=== PATIENT | female | born 1970 | race Caucasian/White ===

== ENCOUNTER 2024-07-08 07:36 | Observation (INO) ==
--- NOTE | 2024-06-29 12:18 | Anesthesiology Consultation ---
Date of Service June 29, 2024 Assessment & Plan (1) Encounter for pre-operative examination: - Per medical physics researcher on 06/29/24: No known infectious disease contacts, current infectious disease symptoms in past 10 days or COVID positive test result in the past 30 days. Chart Review Chart Review: Acceptable Risk for Surgery and Patient NOT seen in Pre Admission Testing History Surgery Operation Date: 07/08/24 09:50 Proposed Procedures p Bilateral Breast Mastectomy with Right [place] Lymph Node Biopsy - Trey Duran DO, FACS Height/Weight Height: 5 ft 6 in Weight: 66.224 kg Allergies Allergy/AdvReac Type Severity Reaction Status Date / Time sulfamethoxazole Allergy Mild Rash Verified 06/29/24 10:47 [From Bactrim] trimethoprim [From Bactrim] Allergy Mild Rash Verified 06/29/24 10:47 Medications Home Medications Medication Instructions Recorded Confirmed Last Taken trazodone 150 mg tablet 150 mg PO HS 06/01/24 06/29/24 Unknown venlafaxine 50 mg tablet 50 mg PO QAM 06/01/24 06/29/24 Unknown Past Medical History Medical History Anxiety History of COVID-19 hx 2020--mild symptoms, no symptoms now Invasive lobular carcinoma of right breast in female diagnosed 05/2024 Tobacco smoker, 1 pack of cigarettes or less per day Past Family History Family History Other No family history of adverse response to anesthesia Past Surgical History Surgical History H/O: hysterectomy partial History of colonoscopy History of right breast biopsy malignant History of wisdom tooth extraction Social History Smoking Status: Current every day smoker Smoking cigarettes per day: 20 a day (advised on policy) Do You Dip or Chew Tobacco: No Hx Alcohol Use: Yes Alcohol type: beer alcohol intake frequency: a few times a month Hx Substance Use: No substance use type: does not use Lab Results Anesthesia Preop Results Results Anesthesia Widget: WBC 5.25 K/ul (4.8-10.8) 06/01/24 Hgb 13.8 g/dl (12.0-16.0) 06/01/24 Hct 42.6 % (37.0-47.0) 06/01/24 Plt 225 K/uL (130-400) 06/01/24 Na 139 mmol/L (136-145) 06/01/24 K 4.1 mmol/L (3.5-5.1) 06/01/24 Cl 106 mmol/L (98-107) 06/01/24 CO2 27 mmol/L (21-32) 06/01/24 BUN 9 mg/dl (6-23) 06/01/24 Creat 0.68 mg/dl (0.6-1.2) 06/01/24 Glucose Level 111 mg/dl (70-99(Fasting)) H 06/01/24 Testing Electrocardiogram Date: 06/23/24 NSR, rate 78 bpm Low voltage QRS, consider pulmonary disease, pericardial effusion or normal variant Chest X-Ray Date: 06/23/24 No acute cardiopulmonary disease.
--- OUTSIDE RECORDS SUMMARY | 2024-07-08 07:52 | External Medical Summary | Summary of Care ---
Author Name Unknown Organization [facility] Address [address] [place] [address] Phone [phone] Care Team Providers Care Sorting Grapple Operator Name Role Phone Gildardo Aquino PA-C Primary Care Provider [phone] Encounter Details Date Type Department Care Team (Latest Contact Info) Description 06/23/2024 11:37 AM EDT - 06/23/2024 11:59 PM EDT Hospital Encounter Cardiac Studies, [facility] [address] [place] [address] Gl, Cargo Worker [address] [place] [address] Discharge Disposition: Home - Self Care Allergies Active Allergy Reactions Criticality Noted Date Comments Sulfamethoxazole-Trimethoprim 2015 rash documented as of this encounter (statuses as of 06/24/2024) Medications Medication Sig Dispensed Refills Start Date End Date Status venlafaxine (EFFEXOR) 75 MG Tablet Take 1 Tablet by mouth in the morning. Active TraZODone & Diet Manage Prod (TRAZAMINE) 50 MG MISC Take by mouth. Active lidocaine 2 % gel Apply topically to affected area 3 times a day as needed for Pain. apply externally only, in a thin layer to the anal area. 30 mL 12/31/2018 Active documented as of this encounter (statuses as of 06/24/2024) Active Problems No known active problems documented as of this encounter (statuses as of 06/24/2024) Social History Tobacco Use Types Packs/Day Years Used Date Smoking Tobacco: Every Day Cigarettes Smokeless Tobacco: Never Utilities Answer Date Recorded Do you have trouble paying y our heating, water, or electric bill? (Adult - for ages 18 years and over) Not on file 05/19/2024 Is your family able to pay t he heat, water, or electric bill? (Household - for ages 0-17 years) Not on file 05/19/2024 Does your family have access to good internet? (Household - for ages 0-17 years) Not on file 05/19/2024 Social Connections Answer Date Recorded How often do you feel lonely or isolated from those around you? (Adult - for ages 18 years and over) Not on file 05/19/2024 Sex and Gender Information Value Date Recorded Sex Assigned at Not on file Gender Identity Not on file Sexual Orientation Not on file Job Start Date Occupation Industry Not on file Not on file Not on file documented as of this encounter Plan of Treatment Upcoming Encounters Date Type Department Care Team (Latest Contact Info) Description 10/07/2024 8:30 AM EST Hospital Encounter ENDO [facility], Endoscopy [address] [phone] Meliton Sharp MD [address] [place] [address] 10/07/2024 8:30 AM EST - 10/07/2024 9:00 AM EST Surgery ENDO [facility], Endoscopy [address] [phone] Meliton Sharp MD [address] [place] [address] COLONOSCOPY FLEXIBLE PROXIMAL DIAGNOSTIC Scheduled Orders Name Type Priority Associated Diagnoses Orde r Schedule EKG EKG Routine Other specified pre-operative examination Ordered: 06/23/2024 Scheduled Procedures Name Priority Associated Diagnoses Date/Ti me COLONOSCOPY FLEXIBLE PROXIMAL DIAGNOSTIC Recall History of colon polyps 10/07/2024 8:30 AM EST Health Maintenance Due Date Last Done Comments Pneumococcal Vaccine: Pediatrics (0 to 5 Years) and At-Risk Patients (6 to 64 Years) (1 of 2 - PCV) 1977 Depression Screening 1983 HIV Screening 1986 Hepatitis C Screening 1989 DTaP,Tdap,and Td Vaccines (1 - Tdap) 1990 Hepatitis B Vaccine (1 of 3 - 19+ 3-dose series) 1990 Cologuard 2016 Fecal Occult Blood Test 2016 Sigmoidoscopy 2016 Zoster Vaccines (1 of 2) 2021 COVID-19 Vaccine (1 - 2022- season) 2023 Influenza Vaccine (FLU shot) (#1) 2024 Mammogram 05/12/2025 05/12/2024, 05/04/2024 Lipid Panel 10/18/2028 10/18/2023, 10/16/2022 Colonoscopy 09/11/2032 09/11/2022, 09/01, 07/10/2016, Additional history exists Colorectal Cancer Screening 09/11/2032 RETIRED - COLONOSCOPY EVERY 10 YEARS,AGES 18-50 Discontinued 09/11/2022, 09/11/2022, 07/10/2016, Additional history exists HPV (Gardasil) Vaccine Aged Out No lo nger eligible based on patient's age to complete this topic MENINGOCOCCAL (MENACTRA/MENVEO) Aged Out No longer eligible based on patient's age to complete this topic documented as of this encounter Medical Devices Implanted Type Area Telephone Instrument Supervisor Device Identifier Shelf Expiration Date Model / Serial / Lot Ultraclip Dual Brst Mrkr Heart - [id number] Implanted:Qty: 1 on 05/20/2024 at [facility] IR IMAG[facility] CR BARD : PERIPHERAL VASCULAR [id number] / / [id number] Titnm 5ct - [id number] Implanted:Qty: 1 on 05/20/2024 at [facility] IR IMAGING CR BARD : PERIPHERAL VASCULAR [id number] / / documented as of this encounter Care Teams Sorting Grapple Operator Relationship Specialty Start Date End Date Gildardo Aquino PA-C [address] [facility] [place] [address] PCP - General Physician Glost Kiln Operator 06/27/16 documented as of this encounter
--- OUTSIDE RECORDS SUMMARY | 2024-07-08 07:52 | External Medical Summary | Summary of Care ---
Author Name Unknown Organization [facility] Address [address] [place] [address] Phone [phone] Care Team Providers Care Buckle Inspector Name Role Phone Gildardo Aquino PA-C Primary Care Provider [phone] Encounter Details Date Type Department Care Team (Late st Contact Info) Description 06/23/2024 Orders Only Cardiac Studies, [facility] [address] [place] [address] Trey Duran, [address], [place] [id number] Other specified pre-operative examination* Allergies Active Allergy Reactions Criticality Noted Date Comments Sulfamethoxazole-Trimethoprim 2015 rash documented as of this encounter (statuses as of 06/23/2024) Medications Medication Sig Dispensed Refills Start Date [...] as of this encounter (statuses as of 06/23/2024) Active Problems No known active problems documented as of this encounter (statuses as of 06/23/2024) Social History Tobacco Use Types Packs/Day Years [...] EST Hospital Encounter [facility]O [facility], Endoscopy [address] [phone] Meliton Sharp MD [address] [place] [address] 10/07/2024 8:30 AM EST - 10/07/2024 9:00 AM EST Surgery ENDO [facility], Endoscopy [address] [phone] Meliton Sharp MD [address] [place] [address] COLONOSCOPY FLEXIBLE PROXIMAL DIAGNOSTIC Scheduled Orders Name [...] of 2) 2021 COVID-19 Vaccine (1 - 2022-24 season) 2023 Influenza Vaccine (FLU shot) (#1) [...] this encounter Medical Devices Implanted Type Area Director Operating Device Identifier Shelf Expiration Date Model / Serial / Lot Ultraclip Dual Brst Mrkr Heart - [id number] Implanted:Qty: 1 on 05/20/2024 at [facility] IR IMAGING CR BARD : PERIPHERAL VASCULAR [id number] / / [id number] Titnm 5ct - [id number] Implanted:Qty: 1 on 05/20/2024 at [facility] IR IMAGING CR BARD : PERIPHERAL VASCULAR [id number] / / documented as of this encounter Visit Diagnoses Diagnosis Other specified pre-operative examination- Primary History of colon polyps Personal history of colonic polyps documented in this encounter Care Teams Buckle Inspector Relationship Specialty Start Date End Date Gildardo Aquino PA-C [address] [facility] [place] [address] PCP - General Physician Vehicle Delivery Worker 06/27/16 documented as of this encounter
--- OUTSIDE RECORDS SUMMARY | 2024-07-08 07:52 | External Medical Summary | Summary of Care ---
Author Name Unknown Organization [facility] Address [address] [place] [address] Phone [phone] Care Team Providers Care School Patrol Name Role Phone Gildardo Aquino PA-C Primary Care Provider [phone] Encounter Details Date Type Department Care Team (Latest Contact Info) Description 06/23/2024 11:26 AM EDT - 06/23/2024 11:36 AM EDT Hospital Encounter Radiology, [facility] [address] [facility] [place] [address] Arrived Discharge Disposition: Home - Self Care Allergies [...] EST Hospital Encounter ENDO [facility], Endoscopy [address] [phone] Meliton Sharp MD [address] [place] [address] 10/07/2024 8:30 AM EST - 10/07/2024 9:00 AM EST Surgery ENDO [facility], Endoscopy [address] [phone] Meliton Sharp MD [address] [place] [address] COLONOSCOPY FLEXIBLE PROXIMAL DIAGNOSTIC Scheduled Procedures Name Priority Associated Diagnoses Date/Ti la COLONOSCOPY FLEXIBLE PROXIMAL DIAGNOSTIC Recall History of [...] Vaccines (1 of 2) 2021 COVID-19 Vaccine ( - season) 2023 Influenza Vaccine (FLU shot) (#1) [...] this encounter Medical Devices Implanted Type Area V Belt Curer Device Identifier Shelf Expiration Date Model / Serial / Lot Ultraclip Dual Brst Mrkr Heart - [id number] Implanted:Qty: 1 on 05/20/[address] [facility] IR IMAGING CR BARD : PERIPHERAL VASCULAR [id number] / / [id number] Titnm 5ct - [id number] Implanted:Qty: 1 on 05/20/[address] [facility] IR IMAGING CR BARD : PERIPHERAL VASCULAR [id number] / / documented as of this encounter Procedures Procedure Name Priority Date/Time Associated Diagnosis Comments XR CHEST 2 VIEWS Routine 06/23/2024 11:3 7 AM EDT Preoperative examination, unspecified Malignant neoplasm of upper-outer quadrant of right female breast (HCC) Estrogen receptor positive status (ER+) documented in this encounter Results * XR CHEST 2 VIEWS (06/23/2024 11:37 AM EDT) Anatomical Region Laterality Modality Chest Digital Radiogra phy 06/24/2024 12:2 3 PM EDT Impressions 06/24/2024 12:20 PM EDT IMPRESSION No acute cardiopulmonary disease. Narrative 06/24/2024 12:20 PM EDT EXAM XR CHEST 2 VIEWS - 06/23/2024 11:37 am HISTORY Encounter for other preprocedural examination TECHNIQUE Frontal and lateral chest radiographs were obtained. COMPARISON None. FINDINGS No focal consolidation, pleural effusion, or pneumothorax. Unremarkable cardiomediastinal silhouette. No acute osseous abnormality. Procedure Note Ronald Cowart MD - 06/24/2024 EXAM XR CHEST 2 VIEWS - 06/23/2024 11:37 am HISTORY Encounter for other preprocedural examination TECHNIQUE Frontal and lateral chest radiographs were obtained. COMPARISON None. FINDINGS No focal consolidation, pleural effusion, or pneumothorax. Unremarkablecardiomediastinal silhouette. No acute osseous abnormality. IMPRESSION IMPRESSION No acute cardiopulmonary disease. Trey Duran DO RADIOLOGY (RAD GENERAL) documented in this encounter Care Teams School Patrol Relationship Specialty Start Date End Date Gildardo Aquino PA-C [address] [facility] [place] [address] PCP - General Physician High School Tutor 06/27/16 documented as of this encounter
[2024-07-08] MEDS: LR 15ML/HR IV SCH (10:22)
[2024-07-08] MEDS: SCOPOLAMINE 1 MG/72 HR TDSY PATCH TD ONE ×2 (11:35→11:36)
[2024-07-08] MEDS ORDERED: ePHEDrine sulfate 50 MG/ML AMP IV PRN (11:35)
[2024-07-08] MEDS ORDERED: DROPERIDOL 5 MG/2 ML VIAL IV PRN (11:35)
[2024-07-08] MEDS ORDERED: ATROPINE SULFATE 0.1 MG/ML 10ML SYR IV PRN (11:35)
--- NOTE | 2024-07-08 11:39 | History & Physical Bridge Note ---
Date of Service July 08, 2024 History & Physical Bridge Note I have examined the patient, reviewed the History & Physical and in the interval since the performance of the History & Physical I have noted the following changes of clinical significance: Right axillary sentinel lymph node marked. No changes noted
[2024-07-08] MEDS ORDERED: MIDAZOLAM HCL 1 MG/ML 2ML VIAL ONE (12:10)
[2024-07-08] MEDS ORDERED: fentaNYL citrate PF 100 MCG/2 ML VIAL ONE (12:10)
[2024-07-08] MEDS: ceFAZolin 2000MG 2,000 MG/15 ML SYR IV SCH ×2 (12:20→20:36)
[2024-07-08] MEDS ORDERED: DexMEDEtomidine HCL IV 100 MCG/ML VIAL IV ONE (12:34)
--- NOTE | 2024-07-08 12:36 | Nuclear Medicine Report ---
LYMPHOSCINTIGRAPHY CLINICAL HISTORY: right breast cancer, for sentinel node bx PROCEDURE: Using standard sterile technique, 4 intradermal and one deep injection of 2.5 mCi of Lymph oseek was placed in the right breast. The patient tolerated the procedure well. There were no immedia te complications. The patient was subsequently transported to the surgical suite. No imaging was obta ined at the referring physician's request. IMPRESSION: Satisfactory injection of Lymphoseek in the right breast. ACT 112: Negative or not required by law. Electronically signed by: Portillo Max M.D. 07/08/2024 12:34 PM
[2024-07-08] MEDS: BUPIVACAINE 0.5 % 5 MG/1 ML MPF 30ML VIAL ONE (14:48)
[2024-07-08] MEDS: METHYLENE BLUE 0.5% 10 ML VIAL ONE (14:48)
[2024-07-08] MEDS: BUPIVACAINE LIPOSOME 1.3% 266 MG/20 ML VIAL ONE (14:48)
--- NOTE | 2024-07-08 15:20 | Operative Report ---
PG Post Operative Report Pre & Post Diagnosis Operation Date: 07/08/24 13:10 Pre-Op Diagnosis: Invasive lobular carcinoma of the right breast, BRCA positive Post-Op Diagnosis: Invasive lobular carcinoma of the right breast, BRCA positive I identified the patient and participated in the time-out.: Yes Procedure Operation Date: 07/08/24 13:10 Actual Procedures p Bilateral Breast Mastectomy with Right [place] Lymph Node Biopsy(Bilateral) - Trey Duran DO, FACS Surgeon Trey Duran DO, PRIYA Veterinary Microbiologist Samanta Haider; Des Peters Estimated Blood Loss 40 Findings Consistent with Post-Op Diagnosis Single sentinel node identified in the right axilla, 540 ex vivo, axilla silent. Bilateral mastectomy performed, imaging of the right mastectomy showed presence of both clips. Specimens Left breast mastectomy Right breast mastectomy Right axillary sentinel lymph node Drains 10 mm ANI drain bilateral mastectomy bed Anesthesia Type General Complications none Disposition Accompanied Patient To Recovery: No Disposition: Recovery Room Indications 53-year-old female with biopsy-proven invasive lobular carcinoma of the right breast, preoperative testing revealed the patient was BRCA positive. Plan for bilateral mastectomy with right axillary sentinel lymph node biopsy. The risks of the procedure were discussed, all questions were answered, and the patient agreed to proceed with surgery as planned. Description of Procedure The patient had a sentinel lymph node injection around the areola on the right breast performed prior to surgery. She had lymphoscintigraphy which confirmed uptake into the right axilla and a single lymph node. The right axilla was examined in the operating room with the gamma probe and revealed a good signal in the right axilla. The patient was properly identified, consented, and taken to the operating room where she was placed in the supine position. General endotracheal anesthesia was induced. SCDs and a safety belt were placed. Preoperative antibiotics were administered. The patient's bilateral chest, arm, and axilla were prepped and draped in the standard sterile fashion. Surgical timeout was performed and all parties were in agreement that this was the correct patient and procedure to be performed and we continued as planned. We began on the left. A transversely oriented elliptical incision was made that encompassed the nipple-arreolar complex on the left. Flaps were raised to the clavicle superiorly, the sternum medially, and the rectus sheath inferiorly. The breast was then taken off the chest wall including the pectoralis fascia from inferior medial to superior lateral. We then continued the dissection along the lateral border of the pectoralis muscle and into the axillary tail of Montoya. The specimen was removed and oriented. The wound was irrigated and hemostasis was confirmed. The wound was packed with gauze and attention turned to the right. A transversely oriented elliptical incision was made that encompassed the nipple-arreolar complex on the right. Flaps were raised to the clavicle superiorly, the sternum medially, and the rectus sheath inferiorly. The breast was then taken off the chest wall including the pectoralis fascia from inferior medial to superior lateral. We then continued the dissection along the lateral border of the pectoralis muscle. We continued the dissection along the lateral border of the pectoralis muscle and along the axillary tail of Montoya. We completed the dissection and the specimen was removed. The specimen was oriented. The wound was irrigated hemostasis achieved. The wound was packed with gauze. I then turned my attention to the sentinel node. Going through the right mastectomy wound I was able to identify a single lymph node in the right axilla. This was ligated proximally and distally with 3-0 silk ties. This measured 540 ex vivo on the gamma probe. The axilla was examined and was silent. The lymph node was passed off the table and sent as a fresh specimen. The wounds were irrigated and hemostasis was confirmed. Two 10 mm ANI drains were placed, 1 under each mastectomy flap. These exited inferior lateral to the incisions. They were secured into place with 2-0 nylon sutures. The skin was closed with interrupted 3-0 Vicryl deep dermal sutures, followed by 4-0 Monocryl running subcuticular suture. Dermabond was placed over the wounds. Drain dressings were placed. Fluffed gauze, an ABD, and an Gaurav wrap were placed around the chest. The patient was extubated in the operating room and taken to the PACU where she recovered without apparent incident. All sponge, instrument and needle counts were correct at the conclusion of the procedure. The patient tolerated the procedure well. The physicians financial legal assistant and nurse practitioner were present and scrubbed for the entirety of the case. They were critical in positioning the patient, prepping and draping, retraction and exposure, removal of the mastectomy specimens, closure of the incisions, and placement of the dressings. I attest to the content of the Intraoperative Record and any orders documented therein. Any exceptions are noted below.
[2024-07-08] MEDS ORDERED: LIDOCAINE 2% 2 ML VIAL/AMP(20MG/ML) INFIL ONE (15:24)
[2024-07-08] MEDS ORDERED: PROPOFOL IV EMULSION 10 MG/ML 100 ML VIAL IV ONE (15:24)
[2024-07-08] MEDS ORDERED: ePHEDrine sulfate 50 MG/5 ML SYR ONE (15:24)
[2024-07-08] MEDS ORDERED: PHENYLEPHRINE 100MCG/ML 10ML SYR IV ONE (15:24)
[2024-07-08] MEDS ORDERED: DEXAMETHASONE SOD INJ 4 MG/ML VIAL ONE (15:24)
[2024-07-08] MEDS ORDERED: ROCURONIUM BROMIDE 10 MG/ML 5 ML VIAL IV ONE (15:24)
[2024-07-08] MEDS ORDERED: ONDANSETRON INJ 2 MG/ML 2 ML VIAL ONE (15:24)
[2024-07-08] MEDS ORDERED: PROPOFOL IV EMULSION 10 MG/ML 20 ML VIAL IV ONE (15:24)
[2024-07-08] MEDS ORDERED: NEOSTIGMINE METHYLSULFATE 1 MG/ML 10ML VIAL ONE (15:25)
[2024-07-08] MEDS ORDERED: GLYCOPYRROLATE 0.2 MG/ML VIAL ONE (15:25)
[2024-07-08] MEDS: fentaNYL citrate PF 100 MCG/2 ML VIAL IV PRN (15:31)
--- NOTE | 2024-07-08 15:39 | Anesthesiology Progress Note ---
Date of Service July 08, 2024 Anesthesia Post Procedure Vital Signs Vital Signs: Temp Pulse Resp BP Pulse Ox O2 Del Method O2 Flow Rate 07/08/24 15:30 73 18 126/85 100 Nasal Cannula 2 07/08/24 15:20 36.0 C L 99 H 19 107/81 100 Nasal Cannula 2 07/08/24 09:58 36.7 C 66 20 110/71 98 Room Air Pain Intensity Bilateral Breast: Pain Intensity: 6 Transfer of Care Handoff Completed per policy Notes Mental Status: alert / awake / arousable Patient Amnestic to Procedure: Yes Nausea / Vomiting: adequately controlled Pain: adequately controlled Airway Patency, RR, SpO2: stable & adequate BP & HR: stable & adequate Hydration State: stable & adequate Anesthetic Complications: no major complications apparent
[2024-07-08] MEDS: HYDROmorphone INJ 0.5 MG/0.5 ML SYR ONE (15:53)
[2024-07-08] MEDS: HYDROmorphone INJ 0.5 MG/0.5 ML SYR IV STA (15:53)
[2024-07-08] MEDS ORDERED: MoRPHine SULFATE 4 MG/ML 1 ML CARP\\VIAL IV PRN (16:48)
[2024-07-08] MEDS ORDERED: oxyCODONE HCL IR 5 MG TAB (IMMEDIATE RELEASE) PO PRN (16:48)
[2024-07-08] MEDS ORDERED: ACETAMINOPHEN 325 MG TAB PO PRN (16:48)
[2024-07-08] MEDS ORDERED: MoRPHine SULFATE 2 MG/ML CARP IV PRN (16:48)
[2024-07-08] MEDS ORDERED: ONDANSETRON INJ 2 MG/ML 2 ML VIAL IV PRN (16:48)
[2024-07-08] MEDS: CHECK SCOPOLAMINE PATCH PLACEMENT SCH (17:47)
[2024-07-08] MEDS: LACTATED RINGER'S 1,000 ML IV SCH (17:48)
[2024-07-08] MEDS: oxyCODONE HCL IR 5 MG TAB (IMMEDIATE RELEASE) PO PRN (18:29)
[2024-07-08] MEDS: ACETAMINOPHEN 1,000 MG/100 ML VIAL IV PRN (20:37)
[2024-07-08] MEDS: traZODone HCL 50 MG TAB PO SCH (20:52)
[2024-07-08 23:31] VITALS: RESP 18
[2024-07-09 07:20] LABS: Basophils # (auto) 0.01 K/uL (0.00-0.20); Basophils % (auto) 0.1 %; Eosinophils # (auto) 0.03 K/uL (0.00-0.50); Eosinophils % (auto) 0.4 %; Hematocrit (blood only) 30.6 % (37.0-47.0); Hemoglobin 9.9 g/dl (12.0-16.0); Immature Granulocytes # (auto) 0.02 K/uL (0.01-0.20); Immature Granulocytes % (auto) 0.3 %; Lymphocytes # (auto) 1.73 K/uL (1.20-3.40); Lymphocytes % (auto) 23.2 %; Mean Corpuscular Hemoglobin 28.5 pg (25.0-34.0); Mean Corpuscular Hgb Conc 32.4 g/dL (32.0-36.0); Mean Corpuscular Volume 88.2 fL (80.0-100.0); Monocytes # (auto) 0.57 K/uL (0.11-0.59); Monocytes % (auto) 7.7 %; Neutrophils # (auto) 5.09 K/uL (1.40-6.50); Neutrophils % (auto) 68.3 %; Platelet Count 194 K/uL (130-400); RDW Coefficient of Variation 12.7 % (11.5-14.5); RDW Standard Deviation 40.4 fL (36.4-46.3); Red Blood Count 3.47 M/uL (4.20-5.40); White Blood Count 7.45 K/ul (4.8-10.8)
[2024-07-09 07:21] VITALS: BP 96/62; TEMP 98.6; O2SAT 93
[2024-07-09 07:55] LABS: BUN Creatinine Ratio 14.7 (10-20); Calcium 8.2 mg/dl (8.6-10.3); Creatinine Clr Calc Pharmacy 90.6 ml/min; Est GFR (African American) 116.6 ml/min; Est GFR (Non-African American) 100.6 ml/min; Potassium 4.5 mmol/L (3.5-5.1)
[2024-07-09] MEDS: VENLAFAXINE HCL 50 MG TAB PO SCH (08:22)
--- NOTE | 2024-07-09 10:20 | Surgery Progress Note ---
Date of Service July 09, 2024 Assessment & Plan (1) Status post bilateral mastectomy: Plan: POD#1 bilateral breast mastectomy with R sentinel lymph node biopsy WBC 7.4, Hbg 9.9. Vitals stable, SBPs 90s, pt feels well Chest incisions c/d/i. FELTON drain x 2 with serosang output, R 130cc, L 65cc She feels well, pain controlled. Diet tolerated Will have RN perform FELTON drain education prior to dispo Continue CHAD bandage and fluff dressings; can remove surgical ones tomorrow F/u in office within 1-2 weeks, or sooner if drains output <30cc x 48 hrs can call office and consider earlier felton removal Admission and Anticipated Discharge Date Admission Date: July 08, 2024 Supervising Physician Co-Signing Physician Notes Patient seen and examined, labs reviewed, agree with above. POD #1 bilateral mastectomy with right sentinel lymph node biopsy. Doing well, pain controlled. Afebrile with stable vitals, flaps viable, no significant fluid collection, FELTON drain serosanguineous. H&H down slightly from preop, likely partially dilutional. Okay to discharge if patient ambulates, FELTON drain instruction prior to discharge, follow-up in general surgery clinic next week for drain removal. Wound care instructions, activity restrictions, return precautions given Subjective Patient feeling well. Pain controlled. Tolerating diet, no nausea/vomiting. + voiding. No lightheadedness/dizziness. Physical Exam Physical Exam: awake/alert, no distress, resting comfortably Respiratory: normal respiratory effort Chest (Breasts): Additional Comments: surgical dressings c/d/i. FELTON drain x2 serosang, R 130cc, L 65cc Results & Data Vital Signs (Past 12 Hours) Vital Signs Temp Pulse Resp BP Pulse Ox O2 Del Method 07/09/24 07:18 98.6 F 81 18 96/62 L 93 Room Air 07/09/24 03:22 98.2 F 69 18 100/63 96 Room Air 07/08/24 23:30 98.2 F 78 18 91/58 L 96 Room Air PG Care Time/CCT Total # of Minutes Spent Total Time Spent with Patient: Total time spent is greater than 50% in coordination of care (as documented) at patient's floor/unit and/or counseling patient: Coding Level of Care Code 84697 Post Operative Follow-Up Diagnoses Status post bilateral mastectomy Z90.13
[2024-07-09 12:45] VITALS: PULSE 87
--- NOTE | 2024-07-09 14:47 | Mammography Report ---
SPECIMEN RIGHT BREAST: 07/08/2024 CLINICAL HISTORY: Status post right breast mastectomy. COMPARISON: No prior exams were available for comparison. Findings: A radiograph was performed of the right breast surgical specimen. A ribbon shaped biopsy c lip is present within the specimen. Another biopsy clip is noted within the specimen at the peripher y. Results were relayed to the surgeon over the telephone in the operating room. IMPRESSION: SPECIMEN The imaged right breast specimen contains two biopsy clips. Lawanda Arellano M.D. /:07/08/2024 15:33:54 Vp Clinical: OR Technologist, [facility]
--- NOTE | 2024-07-14 08:28 | Discharge Summary ---
Date of Service July 09, 2024 Principal Diagnosis invasive lobular carcinoma of the right breast in female s/p bilateral breast mastectomy s/p R axillary sentinel lymph node biopsy Discharge Exam awake/alert, no distress Respiratory normal respiratory effort Chest (Breasts) Additional Comments: surgical dressings c/d/i, ANI drain x2 serosang output Discharge Data Allergies Allergy/AdvReac Type Severity Reaction Status Date / Time sulfamethoxazole Allergy Mild Rash Verified 07/08/24 10:01 [From Bactrim] trimethoprim [From Bactrim] Allergy Mild Rash Verified 07/08/24 10:01 Procedures Performed Operation Date: 07/08/24 13:10 Actual Procedures p Bilateral Breast Mastectomy with Right [place] Lymph Node Biopsy(Bilateral) - Trey Duran DO, FACS Hospital Course (1) Invasive lobular carcinoma of right breast in female: This is a 53yF who presented to the [facility] on 07/08/24 for an elective bilateral breast mastectomy with R sentinel lymph node biopsy with Dr. Duran. The patient tolerated the procedure well, see op note for full details. She recovered in the PACU and was transferred to the med/surg floor in stable condition. Post op her pain was well controlled with prn medications. Diet was advanced as tolerated. She was able to void and ambulate independently without issues. ANI drain x2 remained serosanguineous in nature. ANI drain teaching/education was performed wtih the patient. On POD#1 the patient was deemed stable for discharge to home. She was instructed to follow up in the office within 1 week for check up. Dispo instructions were reviewed with the patient and she demonstrated understanding. (2) Family history of breast cancer: Total Time Total Time Spent Total Time Spent (In Minutes): 15 Discharge Plan Discharge Items Patient Disposition: Home - Self-Care Reason For Visit: Right Breast Infiltratice Lobular [place] Discharge Diagnosis: Bilateral Breast Mastectomy with Right [place] Lymph Node Biopsy Activity: As commented below Lifting: No more than 5 pounds Bathing Comment: no showering until cleared by surgeon. You may sponge bath; Exercise/Sports: Wait until after follow-up appointment Driving/Machine Use: no driving until cleared by the surgeon Non-emergency contact: Surgeon Call non-emergency contact if: you have any medication questions, you have a fever, your temperature is above 101.5, your wound has increased redness, your wound has increased drainage and your wound pain has increased Follow-up/Referrals: Trey Duran, PRIYA ARAGON [Physician] - (call office for a follow up in 1 week ) Gildardo Aquino PA-C [Primary Care Provider] - Diet: Regular Addtl Attending Provider Instructions: You will be discharged to home with [address] Care for the drains as you have been instructed prior to discharge from the hospital. Keep to bulb suction. may empty 2-3x/daily and record output. Bring a log with you to the office You may purchase Tylenol and/or Ibuprofen over the counter if needed for additional pain control over the next few days. Take per manufacturers instructions You may remove your surgical dressings on 07/10/24 and then replace a fluffed gauze dressing with 4x4 gauze and ABD pads and reapply CHAD bandage, you do not need to use tape on your skin. You may continue to wear a supportive/compressive bra until your follow up Keep incisions dry until your follow up. may take a sponge bath otherwise Please apply Ice to surgical area on for 20 minutes off for 20 minutes on over the next 3 days. After 3 days of ice you may use warm compresses for the next 3 days. Pending Studies at Discharge: Yes Studies:: surgical pathology Stand-Alone Forms: My [facility] Medications and DC Order Prescriptions: New oxycodone 5 mg tablet 5 - 10 mg PO .[id number] MDD no more than 6 tabs in 24hours PRN (Reason: pain) Qty: 15 0RF Continued trazodone 150 mg tablet 150 mg PO HS venlafaxine 50 mg tablet 50 mg PO QAM Discharge Orders: Discharge Order (Routine); Ordered 07/09/24 Ordered By: Samanta Haider Admission Data Admit Date/Time: 07/08/24 13:38 Attending Provider: Trey Duran Admit Provider: Trey Duran Primary Care Provider: Gildardo Aquino Other Interventions: Discharge Summary Assessment (RN) Last Done: 07/09/24 12:42 Coding Level of Care Code 00600 IN/OBS DISCH 30 MIN/LESS Diagnoses Invasive lobular carcinoma of right breast in female C50.911 Family history of breast cancer Z80.3
== END 2024-07-09 13:30 | disposition home or self-care (01) ==
LOC: 3E 07:36 → ASU 07:36
DX: Z01.818 Encounter for other preprocedural examination; Z15.01 Genetic susceptibility to malignant neoplasm of breast; Z88.2 Allergy status to sulfonamides; Z17.0 Estrogen receptor positive status [ER+]; Z80.3 Family history of malignant neoplasm of breast; Z79.899 Other long term (current) drug therapy; F41.9 Anxiety disorder, unspecified; F32.A Depression, unspecified; F17.210 Nicotine dependence, cigarettes, uncomplicated; C50.411 Malignant neoplasm of upper-outer quadrant of right female breast